=== PATIENT | male | born 1990 | race Caucasian/White ===

== ENCOUNTER 2018-03-12 06:34 | Emergency (ER) | payer OTHER ==
[2018-03-12 07:38] LABS: BASO % 0.3 % (0.0-1.0); EOS # 0.1 10^3/uL (0.0-0.50); EOS % 1.5 % (0.0-3.0); HEMATOCRIT 43.2 % (42.0-52.0); HEMOGLOBIN 15.1 g/dl (13.5-17.5); LYMPH # 1.4 10^3/uL (1.5-6.5); LYMPH % 41.6 % (24.0-44.0); MEAN CORPUSCULAR HEMOGLOBIN 30.9 pg (27.0-33.0); MEAN CORPUSCULAR VOLUME 88.3 fl (80.0-96.0); MONO # 0.3 10^3/uL (0.0-0.8); MONO % 9.4 % (0.0-5.0); NEUTROPHILS # 1.6 10^3/uL (1.8-7.7); NEUTROPHILS % 47.2 % (36.0-66.0); PLATELET COUNT, AUTOMATED 202 10^3/uL (150-450); RED BLOOD COUNT 4.89 10^6/uL (4.30-6.10); RED CELL DISTRIBUTION WIDTH 11.9 % (11.5-14.5); WHITE BLOOD COUNT 3.4 10^3/uL (4.0-10.0)
[2018-03-12] MEDS: NS 1,000 ML IV (07:41)
[2018-03-12 07:48] LABS: INR 1.04; PROTHROMBIN TIME 13.7 SECONDS (12.4-14.5)
[2018-03-12 08:11] LABS: ANION GAP 4 MEQ/L (8-16); BLOOD UREA NITROGEN 22 MG/DL (7-18); CALCIUM LEVEL 8.6 MG/DL (8.5-10.1); CARBON DIOXIDE LEVEL 29 MEQ/L (21-32); CHLORIDE LEVEL 107 MEQ/L (98-107); CREATININE FOR GFR 1.08 MG/DL (0.70-1.30); GLOMERULAR FILTRATION RATE > 60.0 (>60); GLUCOSE, FASTING 95 MG/DL (70-100); POTASSIUM SERUM 4.2 MEQ/L (3.5-5.1); SODIUM LEVEL 140 MEQ/L (136-145)
[2018-03-12] MEDS: KETOROLAC 30 MG/ML VIAL (J1885) IV (08:23)
[2018-03-12] MEDS: ONDANSETRON 4MG/2ML VIAL (J2405) IV (08:23)
== END 2018-03-12 09:03 | disposition home or self-care (01) ==
LOC: M ED 06:34
DX: R51 Headache (principal); F17.200 Nicotine dependence, unspecified, uncomplicated
CPT/HCPCS: J2405

== ENCOUNTER 2018-12-23 22:53 | Emergency (ER) | payer OTHER ==
[~2018-12-23] VITALS: Ht 175.3 cm; Wt 94.5 kg
[~2018-12-23 22:53] MED LIST: ZOFR4TAB14 PO
[2018-12-24] MEDS ORDERED: CIPRODEX OTIC SUSP 7.5ML AS STA (00:58)
[2018-12-24] MEDS ORDERED: AUGMENTIN 875 MG TAB PO ONE (01:00)
[2018-12-24] MEDS ORDERED: CIPRODEX OTIC (01:03)
[2018-12-24] MEDS ORDERED: AUGM875T28 PO (01:03)
[2018-12-24 01:35] VITALS: BP 140/73
== END 2018-12-24 01:34 | disposition home or self-care (01) ==
LOC: M ED 22:53
DX: H66.92 Otitis media, unspecified, left ear (principal); H60.92 Unspecified otitis externa, left ear; Z86.69 Personal history of other diseases of the nervous system and sense organs; F17.200 Nicotine dependence, unspecified, uncomplicated